=== PATIENT | female | born 1955 | race Caucasian/White ===

== ENCOUNTER 2021-02-02 13:42 | Emergency (ER) | payer OTHER | END 2021-02-02 14:40 | disposition left against medical advice (07) | LOC: ER1 13:42 | DX: Z53.21 Procedure and treatment not carried out due to patient leaving prior to being seen by health care provider (principal) ==

== ENCOUNTER → 2021-07-16 | Outpatient (CLI) | payer OTHER | LOC: HEART 5 09:01 | DX: J44.9 Chronic obstructive pulmonary disease, unspecified (principal) | CPT/HCPCS: 94060; 94729 ==

== ENCOUNTER 2021-08-13 13:09 | Emergency (ER) | payer MEDICARE, OTHER ==
[2021-08-13 16:36] LABS: HEMOGLOBIN 12.2 gm/dl (12.3-15.3); RED BLOOD COUNT 4.19 M/UL (4.00-5.10); WHITE BLOOD COUNT 10.7 K/UL (4.5-11.0)
== END 2021-08-13 16:30 | disposition home or self-care (01) ==
LOC: ER1 13:09
PROVIDERS: Physician Assistant
DX: R10.9 Unspecified abdominal pain (principal); E11.9 Type 2 diabetes mellitus without complications; I10 Essential (primary) hypertension; G40.909 Epilepsy, unspecified, not intractable, without status epilepticus; J44.9 Chronic obstructive pulmonary disease, unspecified; F17.200 Nicotine dependence, unspecified, uncomplicated
CPT/HCPCS: 80053; 85025; 99283; Q9965

== ENCOUNTER 2021-10-19 14:51 | Emergency (ER) | payer MEDICARE, OTHER ==
[2021-10-19 15:40] LABS: HEMOGLOBIN 11.7 gm/dl (12.3-15.3); RED BLOOD COUNT 4.07 M/UL (4.00-5.10); WHITE BLOOD COUNT 11.5 K/UL (4.5-11.0)
== END 2021-10-19 19:19 | disposition home or self-care (01) ==
LOC: ER1 14:51
PROVIDERS: Emergency Medicine
DX: R60.0 Localized edema (principal); Z20.822 Contact with and (suspected) exposure to COVID-19; E11.9 Type 2 diabetes mellitus without complications; J44.9 Chronic obstructive pulmonary disease, unspecified; I10 Essential (primary) hypertension; F17.290 Nicotine dependence, other tobacco product, uncomplicated
CPT/HCPCS: 71045; 80053; 82550; 82553; 83735; 83880; 84100; 84439; 84443; 84484; 85025; 85610; 85730; 93005; 99284; U0002

== ENCOUNTER 2021-11-14 13:50 | Emergency (ER) | payer MEDICARE, OTHER ==
[2021-11-14 14:38] LABS: HEMOGLOBIN 11.6 gm/dl (12.3-15.3); RED BLOOD COUNT 3.92 M/UL (4.00-5.10); WHITE BLOOD COUNT 9.2 K/UL (4.5-11.0)
[2021-11-14] MEDS ORDERED: GLYDO11 ML MM (18:09)
== END 2021-11-14 18:20 | disposition home or self-care (01) ==
LOC: ER1 13:50
PROVIDERS: Physician Assistant
DX: K06.8 Other specified disorders of gingiva and edentulous alveolar ridge (principal); I10 Essential (primary) hypertension; E11.9 Type 2 diabetes mellitus without complications; J44.9 Chronic obstructive pulmonary disease, unspecified; F17.210 Nicotine dependence, cigarettes, uncomplicated; Z85.3 Personal history of malignant neoplasm of breast; Z88.0 Allergy status to penicillin
CPT/HCPCS: 70486; 80053; 83605; 85025; 85652; 99283

== ENCOUNTER 2021-11-26 14:09 | Emergency (ER) | payer MEDICARE, OTHER ==
[~2021-11-26 14:09] MED LIST: GLYDO11 ML MM
== END 2021-11-26 16:00 | disposition left against medical advice (07) ==
LOC: ER1 14:09
DX: K13.79 Other lesions of oral mucosa (principal); E11.9 Type 2 diabetes mellitus without complications; E78.5 Hyperlipidemia, unspecified; G40.909 Epilepsy, unspecified, not intractable, without status epilepticus; I10 Essential (primary) hypertension; J44.9 Chronic obstructive pulmonary disease, unspecified; Z90.89 Acquired absence of other organs; Z90.49 Acquired absence of other specified parts of digestive tract; Z90.710 Acquired absence of both cervix and uterus
CPT/HCPCS: 99281